=== PATIENT | male | born 1985 | race Caucasian/White ===

== ENCOUNTER 2018-02-18 08:59 | Emergency (ER) | payer BC ==
[~2018-02-18] VITALS: Ht 172.7 cm; Wt 88.0 kg
[2018-02-18] MEDS ORDERED: OMEPRAZOLE40 M1 PO (10:13)
[2018-02-18] MEDS ORDERED: AUGMENTIN875 MG PO (11:44)
[2018-02-18 12:23] VITALS: BP 149/109
== END 2018-02-18 12:32 | disposition home or self-care (01) ==
LOC: EME 08:59
DX: S61.231A Puncture wound without foreign body of left index finger without damage to nail, initial encounter (principal); W55.01XA Bitten by cat, initial encounter; Z23 Encounter for immunization; F17.200 Nicotine dependence, unspecified, uncomplicated
CPT/HCPCS: 99281; 99284

== ENCOUNTER 2018-02-21 15:54 | Emergency (ER) | payer BC ==
[~2018-02-21] VITALS: Ht 172.7 cm; Wt 87.5 kg
[~2018-02-21 15:54] MED LIST: AUGMENTIN875 MG PO; OMEPRAZOLE40 M1 PO
[2018-02-21 18:12] VITALS: BP 147/89
== END 2018-02-21 18:13 | disposition home or self-care (01) ==
LOC: EME 15:54
PROC: 3E0234Z Introduction of Serum, Toxoid and Vaccine into Muscle, Percutaneous Approach (ICD-10-PCS; principal; 2018-02-21)
DX: Z20.3 Contact with and (suspected) exposure to rabies (principal); Z23 Encounter for immunization; I10 Essential (primary) hypertension; F17.200 Nicotine dependence, unspecified, uncomplicated
CPT/HCPCS: 99281; 99283

== ENCOUNTER 2018-02-25 05:57 | Emergency (ER) | payer BC ==
[~2018-02-25] VITALS: Ht 172.7 cm; Wt 86.5 kg
[2018-02-25 07:59] VITALS: BP 126/88
== END 2018-02-25 08:00 | disposition home or self-care (01) ==
LOC: EME 05:57
PROC: 3E0234Z Introduction of Serum, Toxoid and Vaccine into Muscle, Percutaneous Approach (ICD-10-PCS; principal; 2018-02-25)
DX: Z20.3 Contact with and (suspected) exposure to rabies (principal); Z23 Encounter for immunization; F17.200 Nicotine dependence, unspecified, uncomplicated
CPT/HCPCS: 99281; 99284

== ENCOUNTER 2018-03-04 04:55 | Emergency (ER) | payer BC ==
[~2018-03-04] VITALS: Ht 172.7 cm; Wt 85.1 kg
[2018-03-04 06:26] VITALS: BP 137/100
== END 2018-03-04 06:26 | disposition home or self-care (01) ==
LOC: EME 04:55
PROC: 3E0234Z Introduction of Serum, Toxoid and Vaccine into Muscle, Percutaneous Approach (ICD-10-PCS; principal; 2018-03-04)
DX: Z20.3 Contact with and (suspected) exposure to rabies (principal); S61.251D Open bite of left index finger without damage to nail, subsequent encounter; W55.01XD Bitten by cat, subsequent encounter; Z23 Encounter for immunization
CPT/HCPCS: 99281; 99283